=== PATIENT | female | born 1970 | race Caucasian/White ===

== ENCOUNTER 2018-05-23 10:13 | Emergency (ER) | payer OTHER ==
--- NOTE | 2018-05-23 10:39 | ER Document Report ---
ED GI/ - General Chief Complaint: Abdominal Pain Stated Complaint: ABDOMINAL PAIN Time Seen by Provider: 05/23/18 10:20 Notes: 47 years old female with a history of ulcerative colitis, Crohn's disease, presents today with pain over the epigastric region. Constipated for several days, had tried Dulcolax, magnesium citrate, Linzess and MiraLAX without success. Nauseous no vomiting. No fever chills or diarrhea. Chronic left leg pain She is on chronic pain medications. Abdomen is distended tender. TRAVEL OUTSIDE OF THE [place] IN LAST 30 DAYS: No - HPI Notes: 05/29/18 09:15 And dictated - Related Data Allergies/Adverse Reactions: prednisone [Prednisone] Allergy (Severe, Verified 05/23/18 10:14) severe edema Past Medical History - Social History Smoking Status: Current Every Day Smoker Chew tobacco use (# tins/day): No Frequency of alcohol use: None Drug Abuse: None Family History: Reviewed & Not Pertinent Patient has suicidal ideation: No Patient has homicidal ideation: No - Past Medical History Cardiac Medical History: Reports: Hx Hypertension - meds x 8 yrs, Hx Peripheral Vascular Disease - HAD "KINK" IN LEFT POPLITEAL ARTERY, CLOTTED ON BCP. HAD STENT, THEN BYPASS--HAD TOES REMOVED. Denies: Hx Heart Attack Pulmonary Medical History: Denies: Hx Asthma, Hx Bronchitis, Hx COPD, Hx Pneumonia Neurological Medical History: Denies: Hx Cerebrovascular Accident, Hx Seizures Endocrine Medical History: Reports: Hx Hypothyroidism Renal/ Medical History: Denies: Hx Peritoneal Dialysis GI Medical History: Musculoskeletal Medical History: Denies Hx Arthritis Psychiatric Medical History: Reports: Hx Depression Infectious Medical History: Past Surgical History: Reports: Hx Section, Hx Cholecystectomy, Hx Orthopedic Surgery - LEFT TRANSMETATARSAL AMPUTATION WITH REVISION, Hx Tubal Ligation - ESSURE, Hx Vascular Surgery - LEFT POPLITEAL ARTERY STENT, THEN BYPASS. Denies: Hx Pacemaker - Immunizations Hx Diphtheria, Pertussis, Tetanus Vaccination: Yes Review of Systems - Review of Systems Notes: dictated Physical Exam - Vital signs Vitals: Temp Pulse Resp BP Pulse Ox 98.7 F 109 H 20 110/64 96 05/23/18 10:18 05/23/18 10:18 05/23/18 10:18 05/23/18 10:18 05/23/18 10:18 - Notes Notes: dictated Course - Vital Signs Vital signs: Temp Pulse Resp BP Pulse Ox 98.6 F 96 20 113/72 98 05/23/18 18:47 05/23/18 18:47 05/23/18 18:47 05/23/18 18:47 05/23/18 18:47 - Laboratory Result Diagrams: 05/23/18 10:54 05/23/18 10:54 Laboratory results interpreted by me: 05/23/18 05/23/18 05/23/18 10:54 10:54 11:14 WBC 14.0 H Plt Count 607 H Seg Neutrophils % 78.9 H Absolute Neutrophils 11.0 H Total Protein 5.8 L Albumin 3.3 L Urine Protein >=500 H Urine Ketones 20 H Urine Bilirubin SMALL H Urine Urobilinogen 2.0 H Urine Ascorbic Acid 20 H Discharge - Discharge Clinical Impression: Ascites, malignant Condition: Stable Disposition: HOME, SELF-CARE Instructions: Abdominal Pain ([facility]) Additional Instructions: As we have discussed you have a condition of the knees specialty intervention and we need it sooner than later. I have gotten you accepted to the [facility] and you were going from here to the [facility] in [facility] that is adjacent to [facility] in [place]. When you go into the hospital setting the ER is all the way to the right and they tell me you want to go all the way to the left and that is where the [facility] is. The number for there is . The position that is admitting you is Dr. Collazo so when you get to the facility you park and go inside and they will have a room for you. Should you have any concerns or problems that we can help you with here at the facility again please do not hesitate to come back. Referrals: KAIA COLLAZO MD [NO LOCAL MD] - Follow up as needed MELONIE MASCORRO MD [Primary Care Provider] - Follow up as needed
[2018-05-23 11:01] LABS: ABSOLUTE BASOPHILS # (AUTO) 0.2 10^3/uL (0.0-0.2); ABSOLUTE EOSINOPHILS # (AUTO) 0.1 10^3/uL (0.0-0.6); ABSOLUTE LYMPHOCYTES (AUTO) 1.9 10^3/uL (0.5-4.7); ABSOLUTE MONOCYTES (AUTO) 0.7 10^3/uL (0.1-1.4); BASOPHILS % (AUTO) 1.4 % (0-2); HEMATOCRIT 41.8 % (36.0-47.0); HEMOGLOBIN 14.2 g/dL (12.0-15.5); LYMPHOCYTES % (AUTO) 13.8 % (13-45); MEAN CORPUSCULAR HEMOGLOBIN 30.9 pg (27.0-33.4); MEAN CORPUSCULAR HGB CONC 33.9 g/dL (32.0-36.0); MEAN CORPUSCULAR VOLUME 91 fl (80-97); MONOCYTES % (AUTO) 4.9 % (3-13); PLATELET COUNT 607 10^3/uL (150-450); RED BLOOD COUNT 4.59 10^6/uL (3.72-5.28); SEGMENTED NEUTROPHILS % (AUTO) 78.9 % (42-78); TOTAL CELLS COUNTED % (AUTO) 100 %
[2018-05-23] MEDS ORDERED: HYDROMORPHONE HCL INJ/PF 2 MG/ML AMPULE IV ONE ×3 (11:01→18:16)
[2018-05-23] MEDS ORDERED: ONDANSETRON HCL INJ/PF 4 MG/2 ML SDV IV ONE (11:03)
--- NOTE | 2018-05-23 11:12 | ER Document Report ---
ED GI/ - General Chief Complaint: Abdominal Pain Stated Complaint: ABDOMINAL PAIN Time Seen by Provider: 05/23/18 10:20 Mode of Arrival: Ambulatory Information source: Patient, Relative Notes: Patient is a morbidly obese female comes to the emergency room with complaint of abdominal pain. Patient states that this started approximately 3 weeks ago and has progressed to having to come to the hospital today. She tried all of the [id number] medications to help relieve her discomfort from constipation and nothing worked per patient she had an appointment 1 week ago that she states the pain that she was having to the turn for the worse and became severe pain 1 week ago. She also states that one week ago she tripped and fell and landed on her belly. This was a mechanical fall patient has have amputated left foot and she just lost her balance when she went to stand up and fell forward. She had no other injuries at that time but since then her pain is gotten worse and her belly has gotten bigger and her eating has become almost nothing. interjects that patient is only taking 2-3 bites of food a day for the past week. She does state that she has had some diarrhea or watery stool. But has been very sparse she admits to nausea but no vomiting. She has a pertinent medical history of Crohn's disease and ulcerative colitis. She is on Pentasa for that. She did see her primary care provider who is Johanna Mix and she placed her on Linzess which she states is really not helping. She also had her do a bottle of mag citrate yesterday and again she has had no success with having bowel movements. Further history shows that she is treated for hypertension and hypothyroidism. She has had a cholecystectomy, she has had a uterine ablation therapy and she has had an Ensure implant patient also informed me that she is on chronic opiate control for her foot pain. She takes of 5 mg OxyContin in the a.m. she takes a 10 mg extended release 1 at night. TRAVEL OUTSIDE OF THE U.S. IN LAST 30 DAYS: No - HPI Patient complains to provider of: Abdominal pain Onset: Other - 3 weeks Timing/Duration: Gradual, Worse Quality of pain: Fullness, Pressure, Sharp Severity at maximum: Severe - She Severity in ED: Severe Pain Level: 5 Context: Recent trauma Location: LUQ, LLQ, RUQ, RLQ Sexual history: Active Associated symptoms: Nausea Exacerbated by: Movement, Walking, Food Relieved by: Denies Similar symptoms previously: Yes Recently seen / treated by doctor: Yes - Related Data Allergies/Adverse Reactions: prednisone [Prednisone] Allergy (Severe, Verified 05/23/18 10:14) severe edema Past Medical History - General Information source: Patient, Relative - Social History Smoking Status: Current Every Day Smoker Cigarette use (# per day): Yes - Half-pack a day Chew tobacco use (# tins/day): No Smoking Education Provided: Yes Frequency of alcohol use: None Drug Abuse: None Family History: Reviewed & Not Pertinent Patient has suicidal ideation: No Patient has homicidal ideation: No - Past Medical History Cardiac Medical History: Reports: Hx Hypertension - meds x 8 yrs, Hx Peripheral Vascular Disease - HAD "KINK" IN LEFT POPLITEAL ARTERY, CLOTTED ON BCP. HAD STENT, THEN BYPASS--HAD TOES REMOVED. Denies: Hx Heart Attack Pulmonary Medical History: Denies: Hx Asthma, Hx Bronchitis, Hx COPD, Hx Pneumonia Neurological Medical History: Denies: Hx Cerebrovascular Accident, Hx Seizures Endocrine Medical History: Reports: Hx Hypothyroidism Renal/ Medical History: Denies: Hx Peritoneal Dialysis GI Medical History: Musculoskeletal Medical History: Denies Hx Arthritis Psychiatric Medical History: Reports: Hx Depression Infectious Medical History: Past Surgical History: Reports: Hx Section, Hx Cholecystectomy, Hx Orthopedic Surgery - LEFT TRANSMETATARSAL AMPUTATION WITH REVISION, Hx Tubal Ligation - ESSURE, Hx Vascular Surgery - LEFT POPLITEAL ARTERY STENT, THEN BYPASS. Denies: Hx Pacemaker - Immunizations Hx Diphtheria, Pertussis, Tetanus Vaccination: Yes Review of Systems - Review of Systems Constitutional: No symptoms reported EENT: No symptoms reported Cardiovascular: No symptoms reported Respiratory: No symptoms reported Gastrointestinal: Abdomen distended, Abdominal pain, Poor appetite, Poor fluid intake Genitourinary: No symptoms reported Female Genitourinary: No symptoms reported Musculoskeletal: No symptoms reported Skin: No symptoms reported Hematologic/Lymphatic: No symptoms reported Neurological/Psychological: No symptoms reported -: Yes All other systems reviewed and negative Physical Exam - Vital signs Vitals: Temp Pulse Resp BP Pulse Ox 98.7 F 109 H 20 110/64 96 05/23/18 10:18 05/23/18 10:18 05/23/18 10:18 05/23/18 10:18 05/23/18 10:18 Interpretation: Hypotensive, Tachycardic - Notes Notes: PHYSICAL EXAMINATION: GENERAL: Patient is a well-nourished well-developed obese 47-year-old female who is in no apparent distress at this point on physical examination. Patient does appear to be in moderate to severe discomfort. HEAD: Atraumatic, normocephalic. EYES: Pupils equal round and reactive to light, extraocular movements intact, conjunctiva are normal. ENT: Nares patent, oropharynx clear without exudates. Dry mucous membranes. NECK: Normal range of motion, supple without lymphadenopathy LUNGS: Breath sounds clear to auscultation bilaterally and equal. No wheezes rales or rhonchi. HEART: Tachycardic rate and rhythm without murmurs ABDOMEN: Examination patient's abdomen shows it to be severely distended, diffusely tender and tympanitic mostly in the upper quad areas while supine. Bowel sounds are absent. Female : deferred Musculoskeletal: Normal range of motion, no pitting or edema. No cyanosis. NEUROLOGICAL: Normal speech, normal gait. Normal sensory, motor exams PSYCH: Normal mood, normal affect. SKIN: Warm, Dry, normal turgor, no rashes or lesions noted. Course - Re-evaluation Re-evalutation: 05/23/18 11:20 Examination the patient stated shows her to be very uncomfortable woman and her workup is going to be given with the flat plate and upright and labs and clarify patient has not had diarrhea she has had some leaky fluid coming out very fine fluid does appear to be fecal however only very minor amount. Not enough to be classified as diarrhea I have discussed the case with Dr. Garcia because patient's findings are not coming back very amicable to diagnosis. Her CT shows that there is a large amount of ascites. There is possible omental caking and the question by the radiologist is there history of ovarian neoplasm. The second finding on there is there is some fluid in the rectum and question was as patient had diarrhea. Other location of the body were relatively normal on the CT read findings. It was decided to run in a transvaginal ultrasound and it comes back same ovaries are not visualized. Normal size uterus. Pelvic cul-de-sac peritoneal implants with large amount of free fluid with low-level internal echoes from cellular debris. Dr. Hsieh also suggested that I contact the VISUAL C DEVELOPER disease education specialist and that is Dr. Deepak Gilliland and run that by him to see which direction we should go with this patient. I contacted Dr. Gilliland who is very pleasant and very in lightening. I informed him of the ascites I informed him of the findings of the ultrasound and he said that she absolutely needs to go to a PROPELLER INSPECTOR oncology and the closest group is in [place]. He gave me the name of [facility] oncology. So I have called [facility] transfer line and explained this to the person there and I am waiting for callback from who is on-call for the group. I was contacted back by Dr. Heaton he is their medical oncologist but deals with the same group it was a mistake and called and he informed me that yes the patient does need to come into the hospital but we needed to talk to the person disease education specialist for the gynecology oncologist. He informed me that that was Dr. Membreno who is taking call for the oncologist [facility]. I talked to and informed him of the findings we have here he agrees the patient needs to be admitted and he is except that herky to be admitted at their facility down there [facility]. He is agreed to the patient can come down to the bed [facility] which is adjacent to the hospital. She can show up there and she will have a bed ready for her. I have gone back and discussed this with patient and they are willing to go this route. Just prior to me talking to the PROPELLER INSPECTOR oncologist in [facility] patient called me to the room and told me she was going to leave the hospital go home and have her Thanksgiving I informed her of what I was doing and I have kept her in the entire loop from the moment I know something until we moved to the next intervention or plan. She started to tell me that they have been here since 1030 today and that she is hungry and tired and she wants to leave. I firmly told her that she needs to reconsider this that if she leaves out of this facility [facility] and does not go to [facility] and these oncologist to a been wonderful to help us out that it may be July for she can get an appointment. That I again told her what I was informed by the oncologist is that we do not want even a surgeon to tap this because if they R home and it is a metastatic process then it may seed more and quickly and spread citizenship teacher. She then told me that if she does go she is not going to go by EMS that she is going by private car and I again I had to tell her that if you have an IV and I by law have to take out and let you go by car you have to go by EMS and most facilities will not take a transfer by private car. And I told patient of front when she said she wants to leave because she is been here so long I told her that I have been working on her since the beginning and that I have kept her in the loop and that we are to a critical point and that she came to see me I did not call her to come here. 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 So at this point after my conversation that she had been accepted I went back and told him patient is now broken down crying and is requesting Ativan. I am going to give patient 1 mg of Ativan I am going to finish the paperwork give her a milligram of Dilaudid and they are headed for [place]. If they choose to go somewhere else that is their choice. 05/23/18 17:43 05/23/18 18:20 - Vital Signs Vital signs: Temp Pulse Resp BP Pulse Ox 98.6 F 96 20 113/72 98 05/23/18 18:47 05/23/18 18:47 05/23/18 18:47 05/23/18 18:47 05/23/18 18:47 - Laboratory Result Diagrams: 05/23/18 10:54 05/23/18 10:54 Laboratory results interpreted by me: 05/23/18 05/23/18 05/23/18 10:54 10:54 11:14 WBC 14.0 H Plt Count 607 H Seg Neutrophils % 78.9 H Absolute Neutrophils 11.0 H Total Protein 5.8 L Albumin 3.3 L Urine Protein >=500 H Urine Ketones 20 H Urine Bilirubin SMALL H Urine Urobilinogen 2.0 H Urine Ascorbic Acid 20 H Critical Care Note - Critical Care Note Total time excluding time spent on procedures (mins): 75 Comments: I had multiple conversations with patient and each step of the way from the KUB through the CT to the ultrasound. Atrial step and inform them what was going on and I gave them the true diagnosis and what we are looking for. I spent time on the phone talking to the local VISUAL C DEVELOPER as well as talking to the medical oncology physician and then to the VISUAL C DEVELOPER oncologist. Covering each of the presenting problems and why we were contacting them. Patient at one point did not want to go through with the transfer and she had me ask the physician if she could come by private car which he allowed her to do so. We did remove the IV and she was going directly from here to there. They had originally asked if they could go home first and get her closed and when I found out it was 30- the other way it would take an hour just to go back to the original starting point here I informed and they need to go directly to the hospital. They said they would and at that point I cannot confirm what happened. I spent at least an hour and 1/2-2 hours in conversation with patient and family and specialist. Discharge - Discharge Clinical Impression: Ascites, malignant Condition: Stable Disposition: HOME, SELF-CARE Instructions: Abdominal Pain ([facility]) Additional Instructions: As we have discussed you have a condition THAT NEEDS specialty intervention and you need it sooner than later. I have gotten you accepted to the [facility] group and you were going from here to the [facility] in [facility] that is adjacent to [facility] in [place]. When you go into the hospital setting the ER is all the way to the right and they tell me you want to go all the way to the left and that is where the [facility] and [facility] is. The number for there is . The position that is admitting you is Dr. Melendez so when you get to the facility you park and go inside and they will have a room for you. Should you have any concerns or problems that we can help you with here at the facility again please do not hesitate to come back. Referrals: MELONIE MIX MD [Primary Care Provider] - Follow up as needed KAIA MELENDEZ MD [NO LOCAL MD] - Follow up as needed
[2018-05-23 11:17] LABS: ALANINE AMINOTRANSFERASE 22 U/L (9-52); ALBUMIN 3.3 g/dL (3.5-5.0); ALKALINE PHOSPHATASE 55 U/L (38-126); ANION GAP 9 (5-19); ASPARTATE AMINO TRANSFERASE 23 U/L (14-36); BILIRUBIN,DIRECT 0.2 mg/dL (0.0-0.4); BILIRUBIN,TOTAL 0.5 mg/dL (0.2-1.3); BLOOD UREA NITROGEN 15 mg/dL (7-20); CALCIUM 9.1 mg/dL (8.4-10.2); CARBON DIOXIDE 30 mmol/L (22-30); CHLORIDE 101 mmol/L (98-107); GLUCOSE 94 mg/dL (75-110); POTASSIUM 3.7 mmol/L (3.6-5.0); SODIUM 139.8 mmol/L (137-145); TOTAL PROTEIN 5.8 g/dL (6.3-8.2)
--- NOTE | 2018-05-23 11:30 | RADIOLOGY REPORT (SQ) ---
EXAM DESCRIPTION: ACUTE ABDOMEN SERIES COMPLETED DATE/TIME: 05/23/2018 11:12 am REASON FOR STUDY: Abdominal pain COMPARISON: Chest films 12/02/2010 NUMBER OF VIEWS: Three views. TECHNIQUE: Frontal chest, supine abdomen and upright abdomen radiographic images acquired. LIMITATIONS: None. FINDINGS: CHEST: No acute infiltrates. Cardiac silhouette size, coby, bony structures unremarkable. FREE AIR: None. No abnormal gas collections. BOWEL GAS PATTERN: Nonspecific bowel gas pattern, with a air in nondistended small bowel loops stomac h and colon. No gas in the descending colon or rectosigmoid. CALCIFICATIONS: No suspicious calcifications. HARDWARE: Clips right upper quadrant post cholecystectomy. Bilateral fallopian tube Essure devices SOFT TISSUES: No gross mass or suggestion of organomegaly. BONES: No acute fracture. No worrisome bone lesions. OTHER: No other significant finding. IMPRESSION: Nonspecific bowel gas pattern. TECHNICAL DOCUMENTATION: JOB ID: [id number] [employer]- All Rights Reserved Reading location - IP/workstation name: [email or web address]
[2018-05-23 11:33] LABS: APPEARANCE,URINE CLOUDY; BILIRUBIN,URINE SMALL (NEGATIVE); COLOR,URINE AMBER; GLUCOSE, URINE NEGATIVE (NEGATIVE); KETONES,URINE 20 mg/dL (NEGATIVE); LEUKOCYTE ESTERASE,URINE NEGATIVE (NEGATIVE); NITRITE,URINE NEGATIVE (NEGATIVE); PROTEIN,URINE >=500 mg/dL (NEGATIVE); URINE SPECIFIC GRAVITY 1.032
[2018-05-23] MEDS ORDERED: NORMAL SALINE 1000 ML 1,000 ML IV ONE (11:49)
--- NOTE | 2018-05-23 14:56 | RADIOLOGY REPORT (SQ) ---
EXAM DESCRIPTION: CT ABD/PELVIS WITH IV ORAL COMPLETED DATE/TIME: 05/23/2018 2:42 pm REASON FOR STUDY: abd pain COMPARISON: None. TECHNIQUE: CT scan of the abdomen and pelvis performed using helical scanning technique with dynamic intravenous contrast injection. Oral contrast. Images reviewed with lung, soft tissue, and bone win dows. Reconstructed coronal and sagittal MPR images reviewed. Delayed images for evaluation of the ur inary system also acquired. All images stored on PACS. All CT scanners at this facility use dose modulation, iterative reconstruction, and/or weight based d osing when appropriate to reduce radiation dose to as low as reasonably achievable (ALARA). [facility]: Dose Right [facility]: CareDose [facility]: Dose Right [facility]: Teradose 4D [facility]: [employer] CONTRAST TYPE AND DOSE: contrast/concentration: Isovue 350.00 mg/ml; Total Contrast Delivered: 100.0 ml; Total Saline Delivered: 72.0 ml RENAL FUNCTION: BUN 15 creatinine 0.8 RADIATION DOSE: CT Rad equipment meets quality standard of care and radiation dose reduction techniq ues were employed. CTDIvol: 17.7 - 19.4 mGy. DLP: 3171 mGy-cm.. LIMITATIONS: None. FINDINGS: LOWER CHEST: Small left pleural effusion. LIVER: Normal size. No masses. No dilated ducts. SPLEEN: Normal size. No focal lesions. PANCREAS: No masses. No significant calcifications. No adjacent inflammation or peripancreatic fluid collections. Pancreatic duct not dilated. GALLBLADDER: Surgically absent. ADRENAL GLANDS: No significant masses or asymmetry. RIGHT KIDNEY AND URETER: No solid masses. No significant calcifications. No hydronephrosis or hyd roureter. LEFT KIDNEY AND URETER: No solid masses. No significant calcifications. No hydronephrosis or hydr oureter. AORTA AND VESSELS: No aneurysm. No dissection. Renal arteries, SMA, celiac without stenosis. RETROPERITONEUM: No retroperitoneal adenopathy, hemorrhage or masses. BOWEL AND PERITONEAL CAVITY: There is a large amount of ascites. Possible omental caking. No obviou s bowel mass. APPENDIX: Not identified. PELVIS: Free fluid in the pelvis. Urinary bladder is normal. There is fluid in the rectum. ABDOMINAL WALL: No masses. No hernias. BONES: No significant or acute findings. OTHER: No other significant finding. IMPRESSION: 1. There is a large amount of ascites. There is possible omental caking. Is there his tory of ovarian neoplasm? 2. There is some fluid in the rectum. Has the patient had diarrhea? TECHNICAL DOCUMENTATION: JOB ID: [id number] Quality ID # [id number]: Final reports with documentation of one or more dose reduction techniques (e.g., Au tomated exposure control, adjustment of the mA and/or kV according to patient size, use of iterative reconstruction technique) 2010 [employer]- All Rights Reserved Reading location - IP/workstation name: [email or web address]
--- NOTE | 2018-05-23 16:19 | RADIOLOGY REPORT (SQ) ---
EXAM DESCRIPTION: U/S NON OB PEL TV W/DOPPLER COMPLETED DATE/TIME: 05/23/2018 4:00 pm REASON FOR STUDY: ?ovarian neoplasm COMPARISON: CT abdomen and pelvis 05/23/2018 TECHNIQUE: Dynamic and static grayscale images acquired of the pelvis via transvaginal approach and recorded on PACS. Additional selected color Doppler and spectral images recorded. LIMITATIONS: None. FINDINGS: UTERUS: Contour normal. No mass. Uterus is 7 x 6 x 4 cm in size ENDOMETRIAL STRIPE: No focal or generalized thickening. No masses. Endometrial stripe 8 mm in thickn ess CERVIX: No nabothian cysts. Cervix closed, 2.6 cm in length. RIGHT AND LEFT OVARY AND DOPPLER: Nondiagnostic. Ovaries not visualized. FREE FLUID: Peritoneal carcinomatosis with nodular peritoneal surfaces along the pelvic cul-de-sac. Large amount of free pelvic fluid with low level internal echoes. OTHER: No other significant finding. IMPRESSION: Ovaries not visualized. Normal size uterus. Pelvic cul-de-sac peritoneal implants with large amount of free fluid with low level internal echoes from cellular debris TECHNICAL DOCUMENTATION: JOB ID: [id number]- All Rights Reserved Rev-11/16 Reading location - IP/workstation name: [email or web address]
[2018-05-23] MEDS ORDERED: LORAZEPAM INJ 2 MG/1 ML VIAL IV STA (18:16)
[2018-05-23 18:50] VITALS: BP 113/72
== END 2018-05-23 18:50 | disposition home or self-care (01) ==
LOC: ER 10:13
DX: C80.1 Malignant (primary) neoplasm, unspecified (principal); R18.0 Malignant ascites; K59.00 Constipation, unspecified; K50.90 Crohn's disease, unspecified, without complications; R11.0 Nausea; E66.01 Morbid (severe) obesity due to excess calories; I10 Essential (primary) hypertension; R63.0 Anorexia; E03.9 Hypothyroidism, unspecified; M79.673 Pain in unspecified foot; F17.210 Nicotine dependence, cigarettes, uncomplicated; Z79.891 Long term (current) use of opiate analgesic; Z79.899 Other long term (current) drug therapy; Z97.5 Presence of (intrauterine) contraceptive device; Z88.8 Allergy status to other drugs, medicaments and biological substances
CPT/HCPCS: 96376; 99285; 96361; 96374; 96375; 36415; 85025; 80053; 81001; 74022; 76830; 93976; 74177; J1170; J2060; J2405; J7030

== ENCOUNTER 2018-06-09 16:14 | Emergency (ER) | payer OTHER ==
[2018-06-09] MEDS ORDERED: ONDANSETRON HCL INJ/PF 4 MG/2 ML SDV IV ONE (16:22)
[2018-06-09] MEDS ORDERED: MORPHINE SULFATE 10 MG/ML INJ IV ONE (16:22)
--- NOTE | 2018-06-09 16:23 | ER Document Report ---
ED Medical Screen (RME) - General Chief Complaint: Nausea/Vomiting Stated Complaint: VOMITTING Time Seen by Provider: 06/09/18 16:22 TRAVEL OUTSIDE OF THE [place] IN LAST 30 DAYS: No - HPI Notes: 06/09/18 16:23 Patient undergoing active chemotherapy for ovarian cancer history of ascites with scheduled paracentesis coming in for nausea vomiting diffuse abdominal pain stating that she needs a paracentesis. - Related Data Allergies/Adverse Reactions: prednisone [Prednisone] Allergy (Severe, Verified 05/23/18 10:14) severe edema Past Medical History - Past Medical History Cardiac Medical History: Reports: Hx Hypertension - meds x 8 yrs, Hx Peripheral Vascular Disease - HAD "KINK" IN LEFT POPLITEAL ARTERY, CLOTTED ON BCP. HAD STENT, THEN BYPASS--HAD TOES REMOVED. Denies: Hx Heart Attack Pulmonary Medical History: Denies: Hx Asthma, Hx Bronchitis, Hx COPD, Hx Pneumonia Neurological Medical History: Denies: Hx Cerebrovascular Accident, Hx Seizures Endocrine Medical History: Reports: Hx Hypothyroidism Renal/ Medical History: Denies: Hx Peritoneal Dialysis GI Medical History: Musculoskeltal Medical History: Denies Hx Arthritis Psychiatric Medical History: Reports: Hx Depression Infectious Medical History: Past Surgical History: Reports: Hx Section, Hx Cholecystectomy, Hx Orthopedic Surgery - LEFT TRANSMETATARSAL AMPUTATION WITH REVISION, Hx Tubal Ligation - ESSURE, Hx Vascular Surgery - LEFT POPLITEAL ARTERY STENT, THEN BYPASS. Denies: Hx Pacemaker - Immunizations Hx Diphtheria, Pertussis, Tetanus Vaccination: Yes Review of Systems - Review of Systems Gastrointestinal: Abdominal pain, Nausea, Vomiting Physical Exam - Vital signs Vitals: Temp Pulse Resp BP Pulse Ox 97.5 F 84 20 117/83 98 06/09/18 16:18 06/09/18 16:18 06/09/18 16:18 06/09/18 16:18 06/09/18 16:18 - General General appearance: Other - in pain uncomfortable In distress: None - Respiratory Respiratory status: No respiratory distress Chest status: Nontender Breath sounds: Normal Chest palpation: Normal Course - Vital Signs Vital signs: Temp Pulse Resp BP Pulse Ox 97.5 F 84 20 117/83 98 06/09/18 16:18 06/09/18 16:18 06/09/18 16:18 06/09/18 16:18 06/09/18 16:18 Doctor's Discharge - Discharge Referrals: MELONIE MASCORRO MD [Primary Care Provider] - Follow up as needed
[2018-06-09] MEDS ORDERED: ONDANSETRON HCL INJ/PF 4 MG/2 ML SDV ONE (16:34)
[2018-06-09 16:44] LABS: ABSOLUTE BASOPHILS # (AUTO) 0.1 10^3/uL (0.0-0.2); ABSOLUTE EOSINOPHILS # (AUTO) 0.1 10^3/uL (0.0-0.6); ABSOLUTE LYMPHOCYTES (AUTO) 1.1 10^3/uL (0.5-4.7); ABSOLUTE MONOCYTES (AUTO) 0.1 10^3/uL (0.1-1.4); ABSOLUTE NEUT (AUTO) 17.3 10^3/uL (1.7-8.2); BASOPHILS % (AUTO) 0.5 % (0-2); EOSINOPHILS % (AUTO) 0.7 % (0-6); HEMATOCRIT 41.7 % (36.0-47.0); LYMPHOCYTES % (AUTO) 5.9 % (13-45); MEAN CORPUSCULAR HEMOGLOBIN 29.9 pg (27.0-33.4); MEAN CORPUSCULAR HGB CONC 33.6 g/dL (32.0-36.0); MEAN CORPUSCULAR VOLUME 89 fl (80-97); MONOCYTES % (AUTO) 0.4 % (3-13); PLATELET COUNT 794 10^3/uL (150-450); RED BLOOD COUNT 4.67 10^6/uL (3.72-5.28); RED CELL DISTRIBUTION WIDTH 14.7 % (11.5-14.0); SEGMENTED NEUTROPHILS % (AUTO) 92.5 % (42-78); TOTAL CELLS COUNTED % (AUTO) 100 %; WHITE BLOOD COUNT 18.7 10^3/uL (4.0-10.5)
[2018-06-09] MEDS ORDERED: HYDROMORPHONE HCL INJ/PF 2 MG/ML AMPULE ONE (16:52)
[2018-06-09 16:58] LABS: ALANINE AMINOTRANSFERASE 52 U/L (9-52); ALBUMIN 2.5 g/dL (3.5-5.0); ALKALINE PHOSPHATASE 73 U/L (38-126); ANION GAP 16 (5-19); ASPARTATE AMINO TRANSFERASE 55 U/L (14-36); BILIRUBIN,DIRECT 0.2 mg/dL (0.0-0.4); BILIRUBIN,TOTAL 0.4 mg/dL (0.2-1.3); BLOOD UREA NITROGEN 39 mg/dL (7-20); CALCIUM 8.4 mg/dL (8.4-10.2); CARBON DIOXIDE 20 mmol/L (22-30); CHLORIDE 97 mmol/L (98-107); GLUCOSE 144 mg/dL (75-110); POTASSIUM 4.5 mmol/L (3.6-5.0); SODIUM 132.6 mmol/L (137-145); TOTAL PROTEIN 5.1 g/dL (6.3-8.2)
[2018-06-09] MEDS ORDERED: NORMAL SALINE 1000 ML 1,000 ML IV ONE ×2 (17:08→17:11)
[2018-06-09] MEDS ORDERED: HYDROMORPHONE HCL INJ/PF 2 MG/ML AMPULE IV ONE ×5 (17:09→20:50)
--- NOTE | 2018-06-09 17:15 | ER Document Report ---
ED General - General Chief Complaint: Nausea/Vomiting Stated Complaint: VOMITTING Time Seen by Provider: 06/09/18 16:22 Mode of Arrival: Stretcher Information source: Patient, Relative Notes: 47-year-old female with stage III ovarian cancer with known omental masses, status post paracentesis at the [facility] [place] 5 days ago (5 L), status post chemotherapy 3 days ago, presents to the emergency room with nausea , vomiting, diarrhea and diffuse abdominal pain. Patient states that the symptoms started the day after chemotherapy. She denies fever. TRAVEL OUTSIDE OF THE [place] IN LAST 30 DAYS: No - HPI Onset: Last week Onset/Duration: Gradual Quality of pain: Dull Severity: Moderate Pain Level: 4 Associated symptoms: Diarrhea, Nausea, Vomiting. denies: Chest pain, Fever, Shortness of breath Exacerbated by: Movement Relieved by: Remaining still Similar symptoms previously: Yes Recently seen / treated by doctor: Yes - Related Data Allergies/Adverse Reactions: prednisone [Prednisone] Allergy (Severe, Verified 06/09/18 16:30) severe edema Past Medical History - General Information source: Patient - Social History Smoking Status: Unknown if Ever Smoked Cigarette use (# per day): No Chew tobacco use (# tins/day): No Frequency of alcohol use: None Drug Abuse: None Lives with: Spouse/Significant other Family History: Reviewed & Not Pertinent Patient has suicidal ideation: No Patient has homicidal ideation: No - Past Medical History Cardiac Medical History: Reports: Hx Hypertension - meds x 8 yrs, Hx Peripheral Vascular Disease - HAD "KINK" IN LEFT POPLITEAL ARTERY, CLOTTED ON BCP. HAD STENT, THEN BYPASS--HAD TOES REMOVED. Denies: Hx Heart Attack Pulmonary Medical History: Denies: Hx Asthma, Hx Bronchitis, Hx COPD, Hx Pneumonia Neurological Medical History: Denies: Hx Cerebrovascular Accident, Hx Seizures Endocrine Medical History: Reports: Hx Hypothyroidism Renal/ Medical History: Denies: Hx Peritoneal Dialysis GI Medical History: Musculoskeletal Medical History: Denies Hx Arthritis Psychiatric Medical History: Reports: Hx Depression Infectious Medical History: Past Surgical History: Reports: Hx Section, Hx Cholecystectomy, Hx Orthopedic Surgery - LEFT TRANSMETATARSAL AMPUTATION WITH REVISION, Hx Tubal Ligation - ESSURE, Hx Vascular Surgery - LEFT POPLITEAL ARTERY STENT, THEN BYPASS. Denies: Hx Pacemaker - Immunizations Hx Diphtheria, Pertussis, Tetanus Vaccination: Yes Review of Systems - Review of Systems Constitutional: denies: Chills, Fever EENT: No symptoms reported Cardiovascular: denies: Chest pain, Palpitations, Heart racing Respiratory: denies: Cough, Short of breath, Wheezing Gastrointestinal: See HPI, Abdominal pain, Diarrhea, Nausea, Vomiting Genitourinary: No symptoms reported Female Genitourinary: No symptoms reported Musculoskeletal: No symptoms reported Skin: No symptoms reported Hematologic/Lymphatic: No symptoms reported Neurological/Psychological: No symptoms reported Physical Exam - Vital signs Vitals: Temp Pulse Resp BP Pulse Ox 97.5 F 84 20 117/83 98 06/09/18 16:18 06/09/18 16:18 06/09/18 16:18 06/09/18 16:18 06/09/18 16:18 Notes: Physical exam: GENERAL: Patient is alert and oriented x3, she appears in significant distress. HEAD: Atraumatic, normocephalic. EYES: Pupils equal round and reactive to light, extraocular movements intact, sclera anicteric, conjunctiva are normal. ENT: TMs normal, nares patent, oropharynx clear without exudates. Moist mucous membranes. NECK: Normal range of motion, supple without obvious mass or JVD. LUNGS: Breath sounds clear to auscultation bilaterally and equal. No wheezes rales or rhonchi. HEART: Regular rate and rhythm without murmurs, rubs or gallops. ABDOMEN: Distended. There appears to be some palpable masses in the upper abdomen. She does appear diffusely tender without obvious rebound. She does have some edema to the abdominal wall. EXTREMITIES: Normal range of motion, no pitting or edema. No clubbing or cyanosis. NEUROLOGICAL: Cranial nerves II through XII grossly intact. Normal speech, moving all extremities. PSYCH: Normal mood, normal affect. SKIN: Warm, Dry, normal turgor, no rashes or lesions noted. Course - Re-evaluation Re-evalutation: 06/09/18 20:51 Note: The patient was treated with IV fluids, IV Dilaudid, IV antiemetics. She is required significant amount of pain medicine. CT of the abdomen was consistent with previous showing a large amount of ascites. I did call IR to get a paracentesis but that service is not available tonight. I discussed case with Dr. de guzman at [facility]. Given the patient's intractable symptoms, I think she is better off being treated at [facility] for continuity of care and a higher level of care. Given that the patient's abdominal fluid is been somewhat loculated during the last paracentesis at [facility] (patient reports that they tried to go into the lower quadrants without success and ended up going higher to get the fluid), I have opted to hold off on doing a diagnostic tap. The patient does have urine consistent with a UTI so she was given IV levofloxacin. Urine and blood cultures were sent. 06/09/18 21:34 Patient is stable for transfer. Transport is here. - Vital Signs Vital signs: Temp Pulse Resp BP Pulse Ox 97.7 F 84 15 121/68 95 06/09/18 20:01 06/09/18 16:18 06/09/18 20:01 06/09/18 20:01 06/09/18 20:01 - Laboratory Result Diagrams: 06/09/18 16:28 06/09/18 16:28 Laboratory results interpreted by me: 06/09/18 06/09/18 06/09/18 16:28 16:28 18:34 WBC 18.7 H RDW 14.7 H Plt Count 794 H Seg Neutrophils % 92.5 H Lymphocytes % 5.9 L Monocytes % 0.4 L Absolute Neutrophils 17.3 H Sodium 132.6 L Chloride 97 L Carbon Dioxide 20 L BUN 39 H Creatinine 1.74 H Est GFR ( Amer) 38 L Est GFR (Non-Af Amer) 31 L Glucose 144 H AST 55 H Total Protein 5.1 L Albumin 2.5 L Urine Protein 30 H Urine Ketones TRACE H - Diagnostic Test Radiology reviewed: Image reviewed, Reports reviewed - CT of the abdomen shows a large amount of ascites Critical Care Note - Critical Care Note Total time excluding time spent on procedures (mins): 60 Discharge - Discharge Clinical Impression: Intractable abdominal pain, Intractable nausea, UTI, Stage III ovarian cancer Condition: Stable Disposition: [facility] Referrals: MELONIE MASCORRO MD [Primary Care Provider] - Follow up as needed
[2018-06-09 17:16] LABS: INTERNATIONAL RATION (INR) 0.99; PROTHROMBIN TIME 13.6 SEC (11.4-15.4)
[2018-06-09] MEDS ORDERED: METOCLOPRAMIDE HCL INJ/PF 10 MG/2 ML SDV IV ONE (17:37)
[2018-06-09] MEDS ORDERED: DIPHENHYDRAMINE HCL 50 MG/ML VIAL IV ONE (17:37)
--- NOTE | 2018-06-09 17:39 | RADIOLOGY REPORT (SQ) ---
EXAM DESCRIPTION: CT ABDOMEN NO ORAL OR IV COMPLETED DATE/TIME: 06/09/2018 5:28 pm REASON FOR STUDY: diffuse abdominal pain COMPARISON: 05/23/2018 TECHNIQUE: CT scan of the abdomen and pelvis performed without intravenous or oral contrast. Images reviewed with lung, soft tissue, and bone windows. Reconstructed coronal and sagittal MPR images revi ewed. All images stored on PACS. All CT scanners at this facility use dose modulation, iterative reconstruction, and/or weight based d osing when appropriate to reduce radiation dose to as low as reasonably achievable (ALARA). [facility]: Dose Right [facility]: CareDose [facility]: Dose Right [facility]: Teradose 4D [facility]: Smart Picturelife RADIATION DOSE: CT Rad equipment meets quality standard of care and radiation dose reduction techniq ues were employed. CTDIvol: 18.0 mGy. DLP: 1024 mGy-cm.mGy. LIMITATIONS: None. FINDINGS: LOWER CHEST: No significant findings. No nodules or infiltrates. NON-CONTRASTED LIVER, SPLEEN, ADRENALS: Evaluation limited by lack of IV contrast. No identified sign ificant masses. PANCREAS: No masses. No peripancreatic inflammatory changes. GALLBLADDER: Surgically absent. RIGHT KIDNEY AND URETER: No suspicious masses. Assessment limited by lack of IV contrast. No signif icant calcifications. No hydronephrosis or hydroureter. LEFT KIDNEY AND URETER: No suspicious masses. Assessment limited by lack of IV contrast. No signifi cant calcifications. No hydronephrosis or hydroureter. AORTA AND RETROPERITONEUM: No aneurysm. No retroperitoneal masses or adenopathy. BOWEL AND PERITONEAL CAVITY: No inflammatory changes. Massive ascites as seen previously. APPENDIX: Not visualized. PELVIS, BLADDER, AND ABDOMINAL WALL:Massive ascites. Bladder unremarkable. Essure devices in the ut erus. Ovaries not seen. BONES: No significant findings. OTHER: No other significant finding. IMPRESSION: Massive ascites as before. Unexplained. Does the patient have history of ovarian cance r? Ovaries in not seen but there appear to be Essure devices in the uterus. COMMENT: Quality ID # [id number]: Final reports with documentation of one or more dose reduction techniques (e.g., Automated exposure control, adjustment of the mA and/or kV according to patient size, use of iterative reconstruction technique) TECHNICAL DOCUMENTATION: JOB ID: [id number]- All Rights Reserved CONTRAST TYPE AND DOSE: Not record not record Reading location - IP/workstation name: [email or web address]
--- NOTE | 2018-06-09 17:44 | RADIOLOGY REPORT (SQ) ---
EXAM DESCRIPTION: CHEST SINGLE VIEW COMPLETED DATE/TIME: 06/09/2018 5:36 pm REASON FOR STUDY: chest pain COMPARISON: 12/02/2010 EXAM PARAMETERS: NUMBER OF VIEWS: One view. TECHNIQUE: Single frontal radiographic view of the chest acquired. RADIATION DOSE: NA LIMITATIONS: None. FINDINGS: LUNGS AND PLEURA: No opacities, masses or pneumothorax. No pleural effusion. MEDIASTINUM AND HILAR STRUCTURES: No masses. Contour normal. HEART AND VASCULAR STRUCTURES: Heart normal in size. Normal vasculature. BONES: No acute findings. HARDWARE: None in the chest. OTHER: No other significant finding. IMPRESSION: NO ACUTE RADIOGRAPHIC FINDING IN THE CHEST. TECHNICAL DOCUMENTATION: JOB ID: [id number] [employer]- All Rights Reserved Reading location - IP/workstation name: [email or web address]
[2018-06-09 19:16] LABS: APPEARANCE,URINE TURBID; BILIRUBIN,URINE NEGATIVE (NEGATIVE); COLOR,URINE YELLOW; GLUCOSE, URINE NEGATIVE (NEGATIVE); KETONES,URINE TRACE mg/dL (NEGATIVE); LEUKOCYTE ESTERASE,URINE NEGATIVE (NEGATIVE); NITRITE,URINE NEGATIVE (NEGATIVE); PROTEIN,URINE 30 mg/dL (NEGATIVE); URINE SPECIFIC GRAVITY 1.023; UROBILINOGEN,URINE NEGATIVE mg/dL (<2.0)
[2018-06-09] MEDS ORDERED: LEVOFLOXACIN 500 MG/D5W RTU 500 MG/100 ML RTUPB IV ONE (19:21)
[2018-06-09 20:15] VITALS: BP 121/68
== END 2018-06-09 21:10 | disposition short-term general hospital (02) ==
LOC: ER 16:14
DX: N39.0 Urinary tract infection, site not specified (principal); C56.9 Malignant neoplasm of unspecified ovary; R10.9 Unspecified abdominal pain; R11.2 Nausea with vomiting, unspecified; R19.7 Diarrhea, unspecified; I10 Essential (primary) hypertension; E03.9 Hypothyroidism, unspecified; Z90.49 Acquired absence of other specified parts of digestive tract
CPT/HCPCS: 96376; 99291; 96361; 96375; 96365; 36415; 87040; 83690; 85025; 85610; 80053; 81001; 83605; 71045; 74150; J1956; J1200; J2765; J2270; J1170; J2405; J7030